=== PATIENT | male | born 1990 | race Caucasian/White ===

== ENCOUNTER 2018-07-01 10:50 | Emergency (ER) | payer SELFPAY ==
[2018-07-01] MEDS ORDERED: NS 1,000 ML IV ONE (11:07)
[2018-07-01] MEDS ORDERED: HYDROmorphONE/DILAUDID 2 MG/ML INJ IVP ONE (11:07)
[2018-07-01] MEDS ORDERED: ONDANSETRON 4 MG/2 ML VIAL IVP ONE (11:07)
--- NOTE | 2018-07-01 11:35 | EDPHY ---
H & P Time Seen by Provider: 07/01/18 11:06 HPI/ROS: HPI Right flank pain. History of kidney stones. 28-year-old male by private vehicle. This patient has a history of kidney stones. He reports that he had sudden onset right-sided flank pain several hours prior to arrival. This has been associated with nausea. He describes pain as deep and aching in his right flank and radiating to his right groin. He reports that his consistent with prior kidney stones. ROS: Constitutional: No fever, no chills. No weakness. Eyes: No discharge. No changes in vision. ENT: No sore throat. No nasal congestion or rhinorrhea. Respiratory: No cough. No shortness of breath. Cardiac: No chest pain, no palpitations. Gastrointestinal: As above, no vomiting, no diarrhea. Genitourinary: No hematuria. No dysuria or increased frequency with urination. Musculoskeletal: As above. No neck pain. No myalgias or arthralgias. Skin: No rashes. Neurological: No headache. No focal weakness or altered sensation. Past medical history: Kidney stones. Social history: Nonsmoker. No alcohol. Here by himself. Physical Exam: General Appearance: Alert, he appears uncomfortable but not in distress. This patient is responding to questions appropriately and in full sentences. This patient appears well-hydrated and well-nourished. Eyes: Pupils equal and round no pallor or injection. No lid edema, erythema or injection. Respiratory: There are no retractions, lungs are clear to auscultation with good air movement bilaterally. Cardiovascular: Regular rate and rhythm. No murmur. Gastrointestinal: Abdomen is soft and nontender, no masses, bowel sounds normal. No focal tenderness at McBurney's point. No Knog sign. Testicular exam: No clinical evidence of torsion or other abnormality. Neurological: Motor sensory function is grossly intact. Cranial nerves are normal. Gait is normal. Skin: Warm and dry, no rashes. Musculoskeletal: Vague right-sided CVA tenderness on palpation. Extremities are symmetrical. All joints range without pain or impingement. Psychiatric: No agitation. No depression. Database: EKG: Imaging: CT abdomen and pelvis without contrast: Significant for 2 small, less than 3 mm , distal ureteral stones on the right. Mild hydronephrosis. Otherwise normal. Results were discussed with staff radiologist Dr. Suleiman Clay. Procedures: Emergency department course: Triage vital signs reviewed. He is mildly hypertensive. Vital signs otherwise normal. IV was placed. He was started on IV normal saline with 500 cc to 1 L to be given over the next hour. He will initially be given 0.5 mg of IV hydromorphone for pain and 4 mg of IV Zofran for nausea. He consents to CT imaging. 12:35 p.m., the patient was given 0.4 mg of oral Flomax. Currently his pain is well controlled. I discussed results the patient CT scan as well as his blood work including his elevated creatinine of 1.5. NSAIDs will be withheld at this time. He does feel comfortable going home. He will be prescribed Zofran as well as Vicodin. I will also continue him on Flomax. I will have him follow up with Urology for re-evaluation. I also explained he needed to follow up with either urology or his primary care physician to have his creatinine checked within the next week. He is in agreement with this plan. Return to emergency department precautions have been reviewed with him. All of his questions were answered. He was discharged from the emergency department in good condition. Differential Diagnosis: The differential diagnosis on this patient includes but is not limited to ureterolithiasis, pyelonephritis, appendicitis. Testicular torsion unlikely. This represents a partial list of diagnoses considered. These considerations are based on history, physical exam, past history, reassessment and diagnostic testing. Smoking Status: Current some day smoker Constitutional: Initial Vital Signs Temperature (C) 37.2 C 07/01/18 10:54 Heart Rate 77 07/01/18 10:54 Respiratory Rate 18 07/01/18 10:54 Blood Pressure 156/94 H 07/01/18 10:54 O2 Sat (%) 95 07/01/18 10:54 O2 Delivery Mode Room Air Allergies/Adverse Reactions: No Known Allergies Allergy (Unverified 07/01/18 10:53) Home Medications: Medication Instructions Recorded Docusate Sodium [Colace 100 MG (*)] 100 mg PO TID #20 cap 07/01/18 Hydrocodone/APAP 5/325 [Mayo 1 - 2 tab PO Q4-6PRN PRN #14 tab 07/01/18 5/325 (*)] Ondansetron Odt [Zofran Odt 4 mg 4 mg PO Q4PRN PRN #10 tab 07/01/18 (*)] Tamsulosin HCl [Flomax 0.4 MG (*)] 0.4 mg PO DAILY #4 cap 07/01/18 Medical Decision Making - Diagnostics Imaging Results: Imaging Impressions Abdomen/Pelvis CT 07/01/18 11:08 Impression: Right renal and ureteral obstruction secondary to 2 small distal ureteral stones about to pass into the urinary bladder. Results discussed with Dr. Guadalupe at 12:20 PM. General information for patients regarding this examination can be found at [email or web address]. If you have questions or comments about this report, please contact me at (hospital) or [phone] (cell). - Data Points Laboratory Results: Laboratory Results 07/01/18 11:30 07/01/18 11:30 07/01/18 07/01/18 11:30 11:30 WBC 17.33 10^3/uL H 10^3/uL (3.80-9.50) RBC 4.81 10^6/uL 10^6/uL (4.40-6.38) Hgb 14.9 g/dL g/dL (13.7-17.5) Hct 42.1 % % (40.0-51.0) MCV 87.5 fL fL (81.5-99.8) MCH 31.0 pg pg (27.9-34.1) MCHC 35.4 g/dL g/dL (32.4-36.7) RDW 12.6 % % (11.5-15.2) Plt Count 208 10^3/uL 10^3/uL (150-400) MPV 9.4 fL fL (8.7-11.7) Neut % (Auto) 83.4 % H % (39.3-74.2) Lymph % (Auto) 9.1 % L % (15.0-45.0) Twiggs % (Auto) 6.6 % % (4.5-13.0) Eos % (Auto) 0.2 % L % (0.6-7.6) Baso % (Auto) 0.2 % L % (0.3-1.7) Nucleat RBC Rel Count 0.0 % % (0.0-0.2) Absolute Neuts (auto) 14.46 10^3/uL H 10^3/uL (1.70-6.50) Absolute Lymphs (auto) 1.57 10^3/uL 10^3/uL (1.00-3.00) Absolute Monos (auto) 1.15 10^3/uL H 10^3/uL (0.30-0.80) Absolute Eos (auto) 0.03 10^3/uL 10^3/uL (0.03-0.40) Absolute Basos (auto) 0.04 10^3/uL 10^3/uL (0.02-0.10) Absolute Nucleated RBC 0.00 10^3/uL 10^3/uL (0-0.01) Immature Gran % 0.5 % % (0.0-1.1) Immature Gran # 0.08 10^3/uL 10^3/uL (0.00-0.10) Sodium 138 mEq/L mEq/L (135-145) Potassium 4.4 mEq/L mEq/L (3.3-5.0) Chloride 104 mEq/L mEq/L (97-110) Carbon Dioxide 23 mEq/l mEq/l (22-31) Anion Gap 11 mEq/L mEq/L (8-16) BUN 12 mg/dL mg/dL (7-23) Creatinine 1.5 mg/dL H mg/dL (0.7-1.3) Estimated GFR 56 Glucose 86 mg/dL mg/dL (70-100) Calcium 9.2 mg/dL mg/dL (8.5-10.4) Medications Given: Discontinued Medications Hydromorphone HCl (Dilaudid) 0.5 mg IVP EDNOW ONE Stop: 07/01/18 11:08 Last Admin: 07/01/18 11:22 Dose: 0.5 mg Sodium Chloride (Ns) 1,000 mls @ 0 mls/hr IV EDNOW ONE; Wide Open PRN Reason: Protocol Stop: 07/01/18 11:08 Last Admin: 07/01/18 11:22 Dose: 1,000 mls Ondansetron HCl (Zofran) 4 mg IVP EDNOW ONE Stop: 07/01/18 11:08 Last Admin: 10/03/18 11:23 Dose: 4 mg Departure - Departure Disposition: Home, Routine, Self-Care Clinical Impression: Right flank pain, Kidney stone on right side, Renal insufficiency Condition: Good Instructions: Kidney Stones (ED) Additional Instructions: Read and follow provided instructions. Follow-up with your primary care physician or Urology in 1-2 days for re- evaluation as discussed. You need to have your kidney function rechecked and specifically your creatinine recheck in 5-7 days. Keep yourself well hydrated. Take medication as prescribed for nausea and pain. Narcotic pain medication: 1-2 every 4-6 hours as needed for pain. Do not take ibuprofen or other NSAID medications. Return to the emergency department for worsening pain, vomiting and inability to keep fluids down or other serious concerns. Referrals: NONE *PRIMARY CARE P,. [Primary Care Provider] - As per Instructions Denzel Au MD [Medical Doctor] - As per Instructions Prescriptions: Docusate Sodium [Colace 100 MG (*)] 100 mg PO TID #20 cap Hydrocodone/APAP 5/325 [Mayo 5/325 (*)] 1 - 2 tab PO Q4-6PRN PRN #14 tab PRN Reason: Pain, Moderate Ondansetron Odt [Zofran Odt 4 mg (*)] 4 mg PO Q4PRN PRN #10 tab PRN Reason: For Nausea & Vomiting Tamsulosin HCl [Flomax 0.4 MG (*)] 0.4 mg PO DAILY #4 cap
[2018-07-01 11:42] LABS: PLATELET COUNT 208 10^3/uL (150-400)
[2018-07-01] MEDS ORDERED: TAMSULOSIN HCL 0.4 MG CAP PO ONE (12:41)
[2018-07-01 12:54] VITALS: BP 147/88
== END 2018-07-01 13:04 | disposition home or self-care (01) ==
DX: N20.1 Calculus of ureter (principal); N20.0 Calculus of kidney; E86.9 Volume depletion, unspecified; N17.9 Acute kidney failure, unspecified; Z87.442 Personal history of urinary calculi
CPT/HCPCS: 96374; J1170; J2405